=== PATIENT | female | born 1970 | race Caucasian/White ===

== ENCOUNTER 2021-08-27 14:58 | Emergency (ER) | payer MEDICARE, SELFPAY ==
--- NOTE | 2021-08-27 15:02 | ED.URI ---
HPI - URI/Sore Throat General Chief Complaint: Upper Respiratory Infection Stated Complaint: Sore Throat/ Ear Pain/Chills Time Seen by Provider: 08/27/21 15:05 Source: patient and RN notes reviewed History of Present Illness HPI Narrative: Patient is a 51-year-old female who presents the urgent care with complaints of sore throat, bilateral ear pain, chills, fever, headache. Patient states that she was camping yesterday when her symptoms started and now she is feeling like she has swelling in the throat. Patient states that she believes her grandkid had strep. States that she has been taking Tylenol and ibuprofen for her symptoms as well as Claritin and Flonase. No other acute complaints. No acute distress noted. Patient aware of the plan of care. Some parts of this dictation were generated by voice recognition software and may contain typographical and/or grammatical inaccuracies. Related Data Home Medications Medication Instructions Recorded Confirmed atorvastatin 20 mg PO DAILY 08/27/21 08/27/21 diazepam 5 mg PO TID PRN 08/27/21 08/27/21 ergocalciferol (vitamin D2) See Rx Instructions .ROUTE .COMPLEX 08/27/21 08/27/21 famotidine 40 mg PO DAILY 08/27/21 08/27/21 ferrous sulfate 28 mg PO DAILY 08/27/21 08/27/21 gabapentin 100 mg PO TID 08/27/21 08/27/21 levothyroxine 150 mcg PO DAILY 08/27/21 08/27/21 omeprazole 20 mg PO DAILY 08/27/21 08/27/21 Allergies Allergy/AdvReac Type Severity Reaction Status Date / Time duloxetine [From Cymbalta] Allergy Unknown Verified 08/27/21 15:31 Review of Systems Review of Systems: CONSTITUTIONAL:reports of fever, chills, and sweats. EYES: Denies visual changes, redness, or discharge. ENT: reports of rhinorrhea, nasal congestion, sore throat, bilateral otalgia. CARDIOVASCULAR: Denies chest pain, palpitations, or edema. RESPIRATORY: Denies cough or dyspnea. GASTROINTESTINAL: Denies abdominal pain, nausea, vomiting, or diarrhea. GENITOURINARY: Denies dysuria or hematuria. SKIN: Denies rash or itching. MUSCULOSKELETAL: Denies back pain, joint pain, or myalgia. NEUROLOGIC: reports of headache All other systems reviewed are negative, except as documented in HPI. PMFSH Comments At the time of my signature, I reviewed and agree with the nursing past medical, surgical, social, and family history. There is no relevant family history pertinent to the patient complaint. Exam Narrative: GENERAL: This is a well-nourished, well-developed patient, in no apparent distress. HEAD: normocephalic, atraumatic. EYES: PERRL. Sclera clear/white. Vision is grossly intact. EARS: External ears normal, auditory canals clear and without drainage, TMs normal without perforation. Hearing grossly intact. NOSE: External nose normal with no obvious nasal discharge, nares without redness, clear rhinorrhea. THROAT: Mucous membranes moist; moderate erythema noted posterior oropharynx moderate postnasal drainage. Mild to moderate bilateral tonsillar edema/erythema without exudate. NECK: Neck supple, mild to moderate bilateral submandibular tender lymphadenopathy CARDIOVASCULAR: Regular rate and rhythm without murmurs, gallops, or rubs. RESPIRATORY: Clear to auscultation. Breath sounds equal bilaterally. No wheezes, rales, or rhonchi. SKIN: warm, intact with no suspicious lesions or rash, good texture and turgor. NEURO: awake, alert, and oriented to person, place and time. There were no obvious focal neurologic abnormalities. EXTREMITIES: No clubbing, cyanosis, or edema. Course Vital Signs Vital signs: Vital Signs Temperature 99.8 F H 08/27/21 15:12 Pulse Rate 94 08/27/21 15:12 Respiratory Rate 16 08/27/21 15:12 Blood Pressure 124/72 08/27/21 15:12 Pulse Oximetry 98 08/27/21 15:12 Temperature 99.8 F H 08/27/21 15:12 Pulse Rate 94 08/27/21 15:12 Respiratory Rate 16 08/27/21 15:12 Blood Pressure 124/72 08/27/21 15:12 Pulse Oximetry 98 08/27/21 15:12 Reviewed MDM - URI/Sore Thro
[2021-08-27 15:12] VITALS: BP 124/72; PULSE 94; RESP 16; TEMP 37.7; O2SAT 98
== END 2021-08-27 15:35 | disposition home or self-care (01) ==
PROVIDERS: Emergency Provider Nurse Practitioner Family; PCP Family Medicine
DX: J02.0 Streptococcal pharyngitis (principal); E78.00 Pure hypercholesterolemia, unspecified; I10 Essential (primary) hypertension; I34.1 Nonrheumatic mitral (valve) prolapse; K21.9 Gastro-esophageal reflux disease without esophagitis; M19.90 Unspecified osteoarthritis, unspecified site; Z96.651 Presence of right artificial knee joint; E03.9 Hypothyroidism, unspecified; F41.9 Anxiety disorder, unspecified
CPT/HCPCS: 87880; 99203; G0463